=== PATIENT | male | born 1965 | race Two or more races ===

== ENCOUNTER → 2017-05-15 | Emergency (ER) | payer OTHER ==
[~2017-05-15] VITALS: Ht 172.7 cm; Wt 81.6 kg
--- NOTE | 2017-05-15 20:02 | NUR ---
[id number] FOR REPORT FEELING ANXIOUS, SHAKY WHILE DRIVING HOME. REPORTS TO BE ON A LOT OF STRESS LATELY. ALSO REPORTS STENT PLACEMENT 2016. DENIES CHEST PAIN. VSS. SAFETY AND COMFORT MEASURES PROVIDED. WILL MONITOR.
--- NOTE | 2017-05-15 20:30 | NUR ---
PT REFUSING CXR, RENETTA ESTRADA IS AWARE.
--- NOTE | 2017-05-15 20:44 | NUR ---
Patient discharged to home in stable condition. Written and verbal after care instructions given. Patient verbalizes understanding of instruction.
[2017-05-15 20:47] VITALS: BP 129/69
== END | disposition home or self-care (01) ==
LOC: ER 19:50
DX: F41.9 Anxiety disorder, unspecified (principal); E78.00 Pure hypercholesterolemia, unspecified; Z95.818 Presence of other cardiac implants and grafts; Z88.8 Allergy status to other drugs, medicaments and biological substances
CPT/HCPCS: 93005; 99283; A4606; Z7610